=== PATIENT | male | born 1995 | race Caucasian/White ===

== ENCOUNTER 2017-11-28 12:02 | Emergency (ER) | payer OTHER ==
[2017-11-28] MEDS: LIDOCAINE 1% MDV 20ML VIAL SC (13:33)
[2017-11-28] MEDS: CEPHALEXIN 500 MG CAP PO (13:33)
== END 2017-11-28 14:13 | disposition home or self-care (01) ==
LOC: M ED 12:02
DX: S61.212A Laceration without foreign body of right middle finger without damage to nail, initial encounter (principal); W20.8XXA Other cause of strike by thrown, projected or falling object, initial encounter; Y92.89 Other specified places as the place of occurrence of the external cause; Y99.0 Civilian activity done for income or pay
CPT/HCPCS: 73130

== ENCOUNTER 2017-12-28 12:19 | Emergency (ER) | payer OTHER ==
[2017-12-27] MEDS: TETRACAINE 0.5% OPHTH SOLN 4ML OU (13:00)
[2017-12-28] MEDS: FLUORESCEIN OPHTH 1 MG STRIP OU (13:00)
[2017-12-28] MEDS: PROPARACAINE 0.5% OPHTH SOL 15ML OD (16:59)
[2017-12-28] MEDS: GENTAMICIN 0.3% OPHTH SOL 5 ML BTL OD (17:12)
== END 2017-12-28 17:26 | disposition home or self-care (01) ==
LOC: M ED 12:19
DX: T15.01XA Foreign body in cornea, right eye, initial encounter (principal); X58.XXXA Exposure to other specified factors, initial encounter; Y92.9 Unspecified place or not applicable; Y93.9 Activity, unspecified
CPT/HCPCS: 65222

== ENCOUNTER → 2019-10-21 | Outpatient (CLI) | payer BC, OTHER ==
[~2019-10-21] MED LIST: KEFL500C17 PO
--- NOTE | 2019-10-21 12:09 | REP ---
Seven views cervical and three views thoracic spines: 10/21/2019. Indication: Cervical thoracic pain. Comparison: 08/17/2005. Findings: There is no acute fracture, subluxation or dislocation. Minimal idiopathic thoracolumbar scoliosis is noted. No lytic or blastic lesions are present. The visualized lungs are clear. Minimal anterior wedging of T4 is better demonstrated on the previous study. No significant paraspinal soft tissue abnormalities are detected. Impression: No acute cervical thoracic osseous injuries. Electronically Signed by Imtiaz Brown DO 10/21/2019 12:01 P
--- NOTE | 2019-10-21 12:10 | REP ---
Seven views cervical and three views thoracic spines: 10/21/2019. Indication: Cervical thoracic pain. Comparison: 08/17/2005. Findings: There is no acute fracture, subluxation or dislocation. Minimal idiopathic thoracolumbar scoliosis is noted. No lytic or blastic lesions are present. The visualized lungs are clear. Minimal anterior wedging of T4 is better demonstrated on the previous study. No significant paraspinal soft tissue abnormalities are detected. There is no instability demonstrated on the flexion/extension images. Impression: No acute cervical thoracic osseous injuries. Electronically Signed by Imtiaz Brown DO 10/21/2019 12:02 P
== END ==
LOC: M WUC 10:41
PROVIDERS: ATTEND Physician Assistant
DX: S16.1XXA Strain of muscle, fascia and tendon at neck level, initial encounter (principal); S39.012A Strain of muscle, fascia and tendon of lower back, initial encounter; X58.XXXA Exposure to other specified factors, initial encounter; Y92.9 Unspecified place or not applicable; Y93.9 Activity, unspecified; Y99.9 Unspecified external cause status

== ENCOUNTER 2019-11-14 09:07 | Day surgery (SDC) | payer BC, OTHER ==
[~2019-11-14] VITALS: Ht 177.8 cm; Wt 94.4 kg
[~2019-11-14 09:07] MED LIST changes: +AMOX875T2 PO; +IBUP-1022 PO; +IBUP200C25 PO; +LIDOCAINE 1% MDV 20ML VIAL SQ PRN; +LR 1,000 ML IV ONE
[2019-11-14] MEDS ORDERED: LIDOCAINE 2% INJ 100 MG/5 ML SDV (FOR ANES.) As Ordered ONE (12:10)
[2019-11-14] MEDS ORDERED: MIDAZOLAM INJ 2 MG/2 ML VIAL (J2250) As Ordered ONE ×2 (12:11→12:38)
[2019-11-14] MEDS ORDERED: fentaNYL 100 MCG/2 ML INJECTION (J3010) As Ordered ONE ×2 (12:11→13:03)
[2019-11-14] MEDS ORDERED: ONDANSETRON 4MG/2ML VIAL (J2405) As Ordered ONE (12:11)
[2019-11-14] MEDS ORDERED: dexameTHASONE 4 MG/ML 1ML VIAL (J1100) As Ordered ONE (12:11)
[2019-11-14] MEDS ORDERED: PROPOFOL 200 MG/20 ML VIAL As Ordered ONE (12:16)
[2019-11-14] MEDS ORDERED: ROCURONIUM BROMIDE 50 MG/5 ML VIAL As Ordered ONE (12:23)
[2019-11-14] MEDS ORDERED: LR 1,000 ML IV SCH (13:45)
[2019-11-14] MEDS ORDERED: ONDANSETRON 4MG/2ML VIAL (J2405) IV PRN (13:45)
[2019-11-14] MEDS ORDERED: fentaNYL 100 MCG/2 ML INJECTION (J3010) IV PRN (13:45)
[2019-11-14] MEDS ORDERED: oxyCODONE 5MG TAB PO PRN (13:45)
[2019-11-14] MEDS ORDERED: NORCO, ANEXSIA 5/325MG TABLET (HYDROcodone/ACETAMINOPHEN) PO PRN (13:45)
--- NOTE | 2019-11-14 14:30 | RO ---
DATE OF PROCEDURE: 11/14/2019 PREOPERATIVE DIAGNOSIS: Pilonidal cyst. POSTOPERATIVE DIAGNOSIS: Pilonidal cyst. PROCEDURE: Pilonidal cystectomy. SURGEON: Dr. Jam Dailey PIPE COVERER AND INSULATOR: None. ANESTHESIA: Spinal. ESTIMATED BLOOD LOSS: 5. COMPLICATIONS: None. INDICATIONS FOR PROCEDURE: The patient is a 24-year-old male who presents with recurrent pilonidal cyst. Recommendation was to proceed with surgical excision. The risks and benefits of the procedure not limited to, but including bleeding, infection, damage to surrounding structures, and need for further surgery were discussed in detail with the patient and informed consent was obtained and the procedure planned. DESCRIPTION OF PROCEDURE: The patient was brought back to operating room six after sufficient sedation, the patient was placed in prone position, and the presacral area was sterilely prepped and draped with Betadine. Next, a time out was done to confirm proper patient and proper procedure. Following that, an elliptical incision was made encompassing the cyst and the sinus tracts. This incision was carried all the way down to the level of the presacral fascia using sharp dissection. Once this was completed, the cyst and tracts were all removed as one specimen and sent to pathology. The wound bed was then carefully cauterized to control bleeding. Once bleeding was completely controlled, the area was packed with 4x4s and covered with tape, thus ending procedure. The patient tolerated the procedure well and was sent to the postanesthesia care unit (PACU) in stable condition.
[2019-11-14 15:03] VITALS: BP 116/59
== END 2019-11-14 15:08 | disposition home or self-care (01) ==
LOC: M SDC 09:07
PROVIDERS: ATTEND Surgery
DX: L05.91 Pilonidal cyst without abscess (principal); L05.92 Pilonidal sinus without abscess; J45.909 Unspecified asthma, uncomplicated; F17.218 Nicotine dependence, cigarettes, with other nicotine-induced disorders
CPT/HCPCS: 11770; 88304; J1100; J2250; J2405; J3010